=== PATIENT | male | born 1955 | race Caucasian/White ===

== ENCOUNTER 2021-07-01 19:18 | Inpatient (IN) ==
--- NOTE | 2021-07-01 19:34 | Emergency Department Note ---
History of Present Illness General Chief Complaint: Chest Pain Time Seen by Provider: 07/01/21 19:24 History of Present Illness Provider Complaint: chest pain Onset (ago): hour(s) 7 Duration: now resolved Onset: during exertion Pain Location: substernal Current Pain Intensity: 0 Quality: + aching, + heaviness and + dull Relieved By: + nitroglycerin and + rest Exacerbated By: + exertion Context: no recent illness, no recent surgery, no recent immobilization, no recent travel, no trauma/injury, no new medications or no history of DVT/PE Associated symptoms: + dyspnea; no nausea, no vomiting, no diaphoresis, no syncope, no palpitations, no fever, no cough or no leg swelling Treatments prior to arrival: aspirin and nitroglycerin Home Medications Medication Instructions Recorded Confirmed Type acetaminophen 500 mg tablet 1,000 mg PO BID PRN 04/30/19 07/01/21 History (Tylenol Extra Strength) Allergies Allergy/AdvReac Type Severity Reaction Status Date / Time No Known Allergies Allergy Unknown Verified 07/01/21 22:26 Past Med/Surg History Medical History No pertinent past medical history Surgical History Hx of tonsillectomy Social History Smoking Status: Never smoker Preferred Language: Armenian Feels Safe at Home: Yes Review of Systems A total of 10 systems reviewed and were otherwise negative Physical Exam Vital Signs Vital Signs - 24 hr 07/01/21 19:27 07/01/21 20:08 07/01/21 21:07 Temperature 37.2 C 36.7 C Temperature Source Oral Oral Pulse Rate 90 Pulse Rate [Apical] 70 Pulse Rhythm [Apical] Regular Pulse Strength [Apical] Normal Respiratory Rate 22 16 Respiratory Effort / Characteristics Non-Labored Spontaneous Respiratory Depth Normal Respiratory Pattern Regular Blood Pressure 144/95 H Blood Pressure [Left Arm] 115/79 Blood Pressure Mean 111 Blood Pressure Mean [Left Arm] 91 Blood Pressure Position Sitting Blood Pressure Position [Left Arm] Lying Pulse Oximetry 88 L 96 Oxygen Delivery Method Nasal Cannula Nasal Cannula Nasal Cannula Oxygen Flow Rate 0 3 4 Sepsis Recent Fever Within 48 Hours No Sepsis New/Unexplained Change in Mental Status No Sepsis Action Taken by Nursing No Action Required Oxygen Flow Rate - Titration 3 Pulse Oximetry Post Tiitration 96 Physical Exam GENERAL: He is oriented to person, place, and time. He appears well-developed and well-nourished. He does not appear distressed. HENT: Exam performed. - Head: Normocephalic and atraumatic. - Right Ear: External ear normal. No mastoid tenderness. - Left Ear: External ear normal. No mastoid tenderness. - Mouth/Throat: The oropharynx is clear and moist. No trismus in the jaw. No dental abscesses or uvula swelling. No oropharyngeal exudate or tonsillar abscesses. EYES: Conjunctivae and EOM are normal. Pupils are equal, round, and reactive to light. Right eye exhibits no discharge. Left eye exhibits no discharge. No scleral icterus. NECK: Normal range of motion. Neck supple. No JVD present. No spinous process tenderness present. No carotid bruit present. No rigidity. No tracheal deviation and normal range of motion present. No Brudzinski's sign and no Kernig's sign noted. CV: Normal rate, regular rhythm, normal heart sounds and intact distal pulses. Palpable radial pulses bue. PULM/CHEST: Diminished right-sided breath sounds. Rales at the bases bilaterally. - Chest Wall: He exhibits no tenderness. No crepitus. ABD: The abdomen is soft. Bowel sounds are normal. He has no distension. No mass is present. There is no tenderness. There is no rebound, no guarding, no Gastelum's sign and no tenderness at McBurney's point. Rovsig negative. MUSC/SKEL: Normal range of motion. There is no tenderness or deformity. 1+ pitting edema of the bilateral lower extremities. LYMPH: No cervical adenopathy. NEURO: He is alert and oriented to person, place, and time. He has normal strength. No cranial nerve deficit or sensory deficit. Coordination and gait normal. GCS eye subscore is 4. GCS verbal subscore is 5. GCS motor subscore is 6. Cerebellar tests wnl. SKIN: Skin is warm and dry. He is not diaphoretic. PSYCH: He has a normal mood and affect. Behavior is normal. Judgment and thought content normal. Procedures Chest Tube Chest Tube 1: Chest Tube Location: right and mid axillary line Size of Tube (cm): 28 Chest Tube Prep: Yes betadine prep and sterile drapes applied Local Anesthetic: lidocaine 1% and with epi Amount of anesthesia used (mL): 10 Incision Made With: #10 blade Post Procedure: sutured to skin and sterile dressing applied Tube Drainage: none Post Procedure CXR?: Yes Patient Tolerated Procedure: Yes Complications: other Progress: Difficult chest tube placement due to patient's habitus. First chest tube was placed and the patient tolerated the procedure well. On the postprocedure x-ray the chest tube did appear to be kinked. The chest tube was removed and it did show a kink. A second chest tube attempt was conducted through the same incision and this unfortunately did not enter the thoracic cavity. Multiple attempts were made at repositioning this but were unable to get into the thoracic cavity. The chest tube was removed. A third chest tube was attempt was made through the initial incision and a large gush of air came out and there is good condensation in the chest tube. On postprocedure x-ray after the third chest tube attempt it showed that the lung was reexpanded. Patient tolerated the procedure well. Course Course 1923: The patient was evaluated in room C11. A complete history and physical exam was performed Cardiac monitoring: An order was placed for continuous cardiac monitoring. The monitor shows a rate of 90 with sinus rhythm Patient was found to be satting 88% on room air. Patient does not usually wear oxygen. Patient was placed on 2 L nasal cannula which improved his oxygen saturation. Patient states he had Covid last year and is not vaccinated and does not want to be vaccinated. 0: X-ray tech called me to bedside. Chest x-ray showed large right-sided pneumothorax. No evidence of tension clinically as patient has no JVD, no hypotension, and trachea is midline. 2129: Signs stable. Chest tube was placed. Difficult chest tube placement, see procedure note. Patient did tolerate the procedure well. Vital signs are stable. Discussed with Dr. Camacho on-call pulmonology who agrees to be on consult and agrees with patient to be admitted to the hospitalist service. [facility] hospitalist will be paged. Administered Medications Discontinued Medications Fentanyl Citrate (Fentanyl Citrate 100 Mcg/2 Ml Vial) Confirm Administered Dose 100 mcg .ROUTE .[employer] ONE Stop: 07/01/21 20:18 Last Admin: 07/01/21 20:22 Dose: 100 mcg Documented by: [id number] Fentanyl Citrate (Fentanyl Citrate 100 Mcg/2 Ml Vial) Confirm Administered Dose 100 mcg .ROUTE .[employer] ONE Stop: 07/01/21 20:47 Last Admin: 07/01/21 20:47 Dose: 100 mcg Documented by: [id number] Lidocaine/Epinephrine (Lidocaine 1%/Epinephrine 1:100,000 50 Ml Vial) Confirm Administered Dose 50 ml .ROUTE .[employer] ONE Stop: 07/01/21 20:08 Last Admin: 07/01/21 20:18 Dose: 50 ml Documented by: [id number] Lorazepam (Lorazepam 2 Mg/1 Ml Vial) Confirm Administered Dose 2 mg .ROUTE .[employer] ONE Stop: 07/01/21 20:19 Last Admin: 07/01/21 20:23 Dose: 1 mg Documented by: [id number] Ondansetron HCl (Ondansetron Inj 2 Mg/Ml 2 Ml Vial) Confirm Administered Dose 4 mg .ROUTE .[employer] ONE Stop: 07/01/21 20:19 Last Admin: 07/01/21 20:22 Dose: 4 mg Documented by: [id number] Medical Decision Making Laboratory Data Result diagrams: 07/01/21 19:36 07/01/21 19:36 Labs: Lab Results 07/01/21 07/01/21 07/01/21 Range/Units 19:36 19:36 19:36 WBC 11.69 H (4.8-10.8) K/uL RBC 5.17 (4.7-6.1) M/uL Hgb 15.4 (14.0-18.0) g/dL Hct 45.7 (42-52) % MCV 88.4 (80-100) fL MCH 29.8 (25-34) pg MCHC 33.7 (32-36) g/dL RDW Std Deviation 44.2 (36.4-46.3) fL RDW Coeff of Lupe 13.6 (11.5-14.5) % Plt Count 244 (130-400) K/uL MPV 10.9 H (7.4-10.4) fL Immature Gran % (Auto) 0.3 % Neut % (Auto) 83.1 % Lymph % (Auto) 9.5 % [place]oto % (Auto) 6.6 % Eos % (Auto) 0.3 % Baso % (Auto) 0.2 % Neut # (Auto) 9.73 H (1.4-6.5) K/uL Lymph # (Auto) 1.11 L (1.2-3.4) K/uL [place] # (Auto) 0.77 H (0.11-0.59) K/uL Eos # (Auto) 0.03 (0-0.5) K/uL Baso # (Auto) 0.02 (0-0.2) K/uL Immature Gran # (Auto) 0.03 H (0.00-0.02) K/uL PT 10.6 (9.0-12.0) Seconds INR 1.0 (0.9-1.1) APTT 26.3 (21.0-31.0) Seconds PTT Ratio 1.0 Sodium (136-145) mmol/L Potassium (3.5-5.1) mmol/L Chloride (98-107) mmol/L Carbon Dioxide (21-32) mmol/L Anion Gap (3-11) BUN (6-23) mg/dl Creatinine (0.6-1.4) mg/dl Est Cr Clr Drug Dosing ml/min Est GFR ( Amer) ml/min Est GFR (Non-Af Amer) ml/min BUN/Creatinine Ratio (10-20) Glucose (70-99(Fasting)) mg/dl Calcium (8.5-10.1) mg/dl Troponin I (0-0.04) ng/ml B-Natriuretic Peptide (0-100) pg/ml Lipase (11-82) U/L SARS-CoV-2, RNA, NAAT (NEGATIVE) 07/01/21 07/01/21 07/01/21 Range/Units 19:36 20:00 20:19 WBC (4.8-10.8) K/uL RBC (4.7-6.1) M/uL Hgb (14.0-18.0) g/dL Hct (42-52) % MCV (80-100) fL MCH (25-34) pg MCHC (32-36) g/dL RDW Std Deviation (36.4-46.3) fL RDW Coeff of Lupe (11.5-14.5) % Plt Count (130-400) K/uL MPV (7.4-10.4) fL Immature Gran % (Auto) % Neut % (Auto) % Lymph % (Auto) % Desoto % (Auto) % Eos % (Auto) % Baso % (Auto) % Neut # (Auto) (1.4-6.5) K/uL Lymph # (Auto) (1.2-3.4) K/uL Desoto # (Auto) (0.11-0.59) K/uL Eos # (Auto) (0-0.5) K/uL Baso # (Auto) (0-0.2) K/uL Immature Gran # (Auto) (0.00-0.02) K/uL PT (9.0-12.0) Seconds INR (0.9-1.1) APTT (21.0-31.0) Seconds PTT Ratio Sodium 138 (136-145) mmol/L Potassium 3.6 (3.5-5.1) mmol/L Chloride 104 (98-107) mmol/L Carbon Dioxide 24 (21-32) mmol/L Anion Gap 10 (3-11) BUN 13 (6-23) mg/dl Creatinine 0.65 (0.6-1.4) mg/dl Est Cr Clr Drug Dosing 170.4 ml/min Est GFR ( Amer) 117.5 ml/min Est GFR (Non-Af Amer) 101.4 ml/min BUN/Creatinine Ratio 20.0 (10-20) Glucose 132 H (70-99(Fasting)) mg/dl Calcium 9.1 (8.5-10.1) mg/dl Troponin I 0.04 (0-0.04) ng/ml B-Natriuretic Peptide 88 (0-100) pg/ml Lipase 12 (11-82) U/L SARS-CoV-2, RNA, NAAT NEGATIVE (NEGATIVE) Imaging Data Chest x-ray: Radiologist's impression: Chest X-Ray 07/01/21 19:30 XR chest 1V portable HISTORY: Right-sided Chest Pain COMPARISON: None. FINDINGS: Large right pneumothorax with near-complete collapse of the right lung. There is mild left mediastinal shift and widening of the right intercostal spaces. This is concerning for a tension pneumothorax. Interstitial thickening at the left lung is likely due to vascular crowding. The heart is normal in size. No pleural effusions. IMPRESSION: Large right pneumothorax, possibly representing a tension pneumothorax. This was discussed with Dr. Cardozo at 8:00 PM on 07/01/2021 ACT 112: Negative or not required by law. Electronically signed by: Omar Kapadia M.D. 07/01/2021 8:02 PM Chest X-Ray 07/01/21 20:58 XR chest 1V portable HISTORY: Right pneumothorax. Evaluate chest tube placement. CHEST TUBE ORDER PUT IN PER DR CARDOZO STERILE COMPARISON: Chest 07/01/2021. FINDINGS: Multiple images of the chest were obtained. On the first 6 images the chest tube is not within the pleural cavity. The final image demonstrates the chest tube located within the right lung base. The final image demonstrates reexpansion of the right lung with a small pneumothorax remaining. Linear densities within the right lung likely represent subsegmental atelectasis. The mediastinal shift has resolved. The heart is normal in size. Right paramediastinal density is noted. There is right chest wall subcutaneous em physema. IMPRESSION: 1. Multiple attempts at a right-sided chest tube placement with the final image demonstrating the chest tube located at the right lung base and reexpansion of the large right pneumothorax. 2. Small right pneumothorax persists. Mediastinal shift has resolved. 3. Right paramediastinal density is nonspecific and could represent atelectasis. Continued follow-up recommended to ensure resolution of this finding. ACT 112: Negative or not required by law. Electronically signed by: Omar Kapadia M.D. 07/01/2021 9:15 PM ECG Data Indication: chest pain Rate (beats per minute): 92 Rhythm: normal sinus Findings: no ST depression, no ST elevation or no prolonged QT MDM Narrative 1923: The patient was evaluated in room C11. A complete history and physical exam was performed Cardiac monitoring: An order was placed for continuous cardiac monitoring. The monitor shows a rate of 90 with sinus rhythm Patient was found to be satting 88% on room air. Patient does not usually wear oxygen. Patient was placed on 2 L nasal cannula which improved his oxygen saturation. Patient states he had Covid last year and is not vaccinated and does not want to be vaccinated. 1939: X-ray tech called me to bedside. Chest x-ray showed large right-sided pneumothorax. No evidence of tension clinically as patient has no JVD, no hypotension, and trachea is midline. 2130: Signs stable. Chest tube was placed. Difficult chest tube placement, see procedure note. Patient did tolerate the procedure well. Vital signs are stable. Discussed with Dr. Camacho on-call pulmonology who agrees to be on consult and agrees with patient to be admitted to the hospitalist service. [facility] hospitalist will be paged. Impression & Plan Pneumothorax Discharge Plan Visit Data Chief Complaint: Chest Pain ED Provider: Heriberto Cardozo Discharge Problem: Pneumothorax Patient Disposition: Admitted As Inpatient Forms Stand Alone Forms: [facility] Prescriptions Prescriptions: No Action acetaminophen [Tylenol Extra Strength] 500 mg Tablet 1,000 mg PO BID PRN (Reason: Pain) RF: 0 Referrals Referrals: PCP,NO [Primary Care Provider] - Discharge Problem: Pneumothorax Qualifiers: Pneumothorax type: spontaneous, primary Qualified Code(s): J93.11 - Primary spontaneous pneumothorax
[2021-07-01 19:47] LABS: Basophils # (auto) 0.02 K/uL (0-0.2); Basophils % (auto) 0.2 %; Eosinophils # (auto) 0.03 K/uL (0-0.5); Eosinophils % (auto) 0.3 %; Hematocrit (blood only) 45.7 % (42-52); Hemoglobin 15.4 g/dL (14.0-18.0); Immature Granulocytes # (auto) 0.03 K/uL (0.00-0.02); Immature Granulocytes % (auto) 0.3 %; Lymphocytes # (auto) 1.11 K/uL (1.2-3.4); Lymphocytes % (auto) 9.5 %; Mean Corpuscular Hemoglobin 29.8 pg (25-34); Mean Corpuscular Hgb Conc 33.7 g/dL (32-36); Mean Corpuscular Volume 88.4 fL (80-100); Mean Platelet Volume 10.9 fL (7.4-10.4); Monocytes # (auto) 0.77 K/uL (0.11-0.59); Monocytes % (auto) 6.6 %; Neutrophils # (auto) 9.73 K/uL (1.4-6.5); Neutrophils % (auto) 83.1 %; Platelet Count 244 K/uL (130-400); RDW Coefficient of Variation 13.6 % (11.5-14.5); RDW Standard Deviation 44.2 fL (36.4-46.3); Red Blood Count 5.17 M/uL (4.7-6.1); White Blood Count 11.69 K/uL (4.8-10.8)
--- NOTE | 2021-07-01 20:04 | XRay Report ---
XR chest 1V portable HISTORY: Right-sided Chest Pain COMPARISON: None. FINDINGS: Large right pneumothorax with near-complete collapse of the right lung. There is mild left mediastinal shift and widening of the right intercostal spaces. This is concerning for a tension pneu mothorax. Interstitial thickening at the left lung is likely due to vascular crowding. The heart is n ormal in size. No pleural effusions. IMPRESSION: Large right pneumothorax, possibly representing a tension pneumothorax. This was discussed with Dr. Kisha zhu at 8:00 PM on 07/01/2021 ACT 112: Negative or not required by law. Electronically signed by: Omar Kapadia M.D. 07/01/2021 8:02 PM
[2021-07-01] MEDS ORDERED: LIDOCAINE 1%/EPINEPHRINE 1:100,000 50 ML VIAL ONE (20:07)
[2021-07-01 20:10] LABS: Troponin I 0.04 ng/ml (0-0.04)
[2021-07-01 20:15] LABS: Partial Thromboplastin Time 26.3 Seconds (21.0-31.0); Prothrombin Time 10.6 Seconds (9.0-12.0)
[2021-07-01 20:17] LABS: Calcium 9.1 mg/dl (8.5-10.1); Creatinine Clr Calc Pharmacy 170.4 ml/min; Est GFR (African American) 117.5 ml/min; Est GFR (Non-African American) 101.4 ml/min; Potassium 3.6 mmol/L (3.5-5.1)
[2021-07-01] MEDS ORDERED: fentaNYL citrate 100 MCG/2 ML VIAL ONE ×2 (20:17→20:46)
[2021-07-01] MEDS ORDERED: LORazepam 2 MG/1 ML VIAL ONE (20:18)
[2021-07-01] MEDS ORDERED: ONDANSETRON INJ 2 MG/ML 2 ML VIAL ONE (20:18)
--- NOTE | 2021-07-01 21:18 | XRay Report ---
XR chest 1V portable HISTORY: Right pneumothorax. Evaluate chest tube placement. CHEST TUBE ORDER PUT IN PER DR JULIANE CALZADA COMPARISON: Chest 07/01/2021. FINDINGS: Multiple images of the chest were obtained. On the first 6 images the chest tube is not wit hin the pleural cavity. The final image demonstrates the chest tube located within the right lung bas e. The final image demonstrates reexpansion of the right lung with a small pneumothorax remaining. Li near densities within the right lung likely represent subsegmental atelectasis. The mediastinal shift has resolved. The heart is normal in size. Right paramediastinal density is noted. There is right ch est wall subcutaneous emphysema. IMPRESSION: 1. Multiple attempts at a right-sided chest tube placement with the final image demonstrating the zaheer st tube located at the right lung base and reexpansion of the large right pneumothorax. 2. Small right pneumothorax persists. Mediastinal shift has resolved. 3. Right paramediastinal density is nonspecific and could represent atelectasis. Continued follow-up recommended to ensure resolution of this finding. ACT 112: Negative or not required by law. Electronically signed by: Omar Kapadia M.D. 07/01/2021 9:15 PM
--- NOTE | 2021-07-01 22:47 | History & Physical Report ---
Date of Service July 01, 2021 Assessment & Plan (1) Pneumothorax: Plan: Tony Munguia is a 66-year-old male with PMH of tobacco use for many years (stopped in 1997) who presented today for chest pain since earlier today. Pneumothorax Status post chest tube placement in the ED As needed pain management with Tylenol and IV morphine Patient likely has some underlying lung pathology with long history of tobacco use, could consider PFTs in the future Pulmonology consult in a.m. DVT prophylaxis: SCDs, hold chemoprophylaxis Dispo: Telemetry Diet: Heart healthy, NSS @ 80cc/h CODE STATUS: Full History of Present Illness Primary Care Provider: NO PCP Tony Munguia is a 66-year-old male with PMH of tobacco use for many years (stopped in 1997) who presented today for chest pain since earlier today. He initially felt the pain when he was raking leaves in his yard around noon and noticed shortness of breath. At this point, he stopped raking, went inside his home, and symptoms improved. Later on in the afternoon he reattempted to rake outside and shortness of breath recurred. At this point he developed chest pain that radiated towards his right arm. Pain level was about 6 out of 10, described as pressure. EMS was called and arrived to find patient with ongoing symptoms. He was given a dose of nitroglycerin on route to the emergency department, with some improvement in pain levels. Upon arrival to ED, patient was found to be hypoxic and had chest x-ray performed, which showed a large right pneumothorax, possibly representing a tension pneumothorax. At this point, ED provider proceeded with chest tube placement, which proved to be difficult due to patient habitus. On the third attempt, chest tube was successfully placed follow-up x-ray showed lung reexpansion. At the time of my evaluation, patient was laying in bed and was reasonably comfortable.Still had very mild dyspnea sensation, but was saturating well on nasal cannula 2 L. Pain was controlled at that time. Denying f/c, n/v, CP, abd pain, weakness, numbness, HOLLAND, dizziness. Allergies Allergy/AdvReac Type Severity Reaction Status Date / Time No Known Allergies Allergy Unknown Verified 07/01/21 22:26 Home Medications Medication Instructions Recorded Confirmed Type acetaminophen 500 mg tablet 1,000 mg PO BID PRN 04/30/19 07/01/21 History (Tylenol Extra Strength) Past Med/Surg History Medical History (Updated 07/02/21 @ 09:55 by Nilay Jack PA-C) History of tobacco abuse Morbid obesity with BMI of 45.0-49.9, adult No pertinent past medical history Pneumothorax Nontraumatic Surgical History Hx of tonsillectomy Social History Smoking Status: Never smoker Hx Alcohol Use: No Hx Substance Use: No Preferred Language: Stateless Communication Ability: Effective Critical Care Registered Nurse Required: No Beliefs That Will Affect Care: None Current Living Situation: Alone Other Information That Helps Us Care for You: No Feels Safe at Home: Yes Safety Concerns: Feels Safe At This Time Assistive Devices: Oxygen - Continuous Review of Systems Review of Systems: All systems reviewed & are unremarkable except as noted in HPI & below Physical Exam Physical Exam: GENERAL: A&Ox3. NAD. Obese. HEENT: PERRL, EOMI. Moist mucous membranes. NECK: No JVD. No lymphadenopathy. CHEST/LUNGS: Diminished lung sounds on right side. No crackles, wheezes, rales, rhonchi. Chest tube in place on right side. HEART: RRR. No m/g/r. No carotid bruits. ABDOMEN: NT/ND, soft. BS+ x4 EXTREMITIES: No cyanosis, no clubbing, no edema SKIN: Warm and dry. No rashes or lesions. PSYCHIATRIC: Euthymic affect, no SI, no pressured speech, no hallucinations NEUROLOGIC: No FND. CN II-XII grossly intact. Results & Data Results & Data ([facility]) Vital Signs (Past 12 Hours) Vital Signs Temp Pulse Pulse Resp BP BP Pulse Ox 07/01/21 21:07 36.7 C 70 16 115/79 96 07/01/21 19:27 37.2 C 90 22 144/95 H 88 L Supervising Physician Co-Signing Physician Notes Attending addendum: I have physically seen this patient, have supervised the medical residents activities, and agree with the H&P unless as otherwise noted. Assessment and Plan: Right pneumothorax- Status post chest tube placement in the ED Pain management with with IV Tylenol and IV morphine as noted Consult pulmonology Tobacco abuse disorder Cessation counseling Remaining orders and notations as noted Resident Activity Tracking Resident Involvement: Resident Care Provided Care Provided: Adult Hospital Medicine (1) Pneumothorax Pneumothorax type: spontaneous, primary Qualified Code(s): J93.11 - Primary spontaneous pneumothorax
[2021-07-02] MEDS ORDERED: ALUMINUM/MAGNESIUM SUSP 30 ML UDC PO PRN (00:07)
[2021-07-02] MEDS ORDERED: ACETAMINOPHEN 500 MG TAB PO PRN ×2 (00:07→01:23)
[2021-07-02] MEDS ORDERED: POLYETHYLENE (MIRALAX) 17 GM PACK PO PRN (00:07)
[2021-07-02] MEDS ORDERED: ONDANSETRON INJ 2 MG/ML 2 ML VIAL IV PRN (00:07)
[2021-07-02] MEDS ORDERED: MAGNESIUM HYDROXIDE SUSP 30 ML UDC PO PRN (00:07)
[2021-07-02] MEDS: SODIUM CHLORIDE 0.9% 1000ML 1,000 ML IV SCH ×3 (00:18→23:42)
[2021-07-02] MEDS ORDERED: MoRPHine SULFATE 4 MG/ML 1 ML CARP\\VIAL IV PRN (00:27)
[2021-07-02] MEDS ORDERED: MoRPHine SULFATE 2 MG/ML CARP ONE (00:37)
[2021-07-02] MEDS: MoRPHine SULFATE 2 MG/ML CARP IV PRN ×2 (03:44→05:05)
[2021-07-02 08:07] LABS: Chol HDL Ratio 3.9 (0-5)
--- NOTE | 2021-07-02 08:22 | Hospitalist Progress Note ---
Date of Service July 02, 2021 Assessment & Plan (1) Pneumothorax: Plan: Tony Munguia is a 66-year-old male with PMH of tobacco use (stopped in 1997) who presented today for chest pain and found to have a right pneumothorax. Had chest tube placed and is improving. Pneumothorax; spontaneous; improving - Chest tube placed right side - CXR 316 AM, pneumothorax improving - As needed pain management with Tylenol and IV morphine Patient likely has some underlying lung pathology with history of tobacco use (30 pack year), could consider PFTs in the future Pulmonology consult recs appreciated: - CXR this AM - Air leak appeared to resolved, switched to water seal (mimics normal physiology) and repeat CXR in 4 hours (~2PM) - If pneumothorax resolved then, possible chest tube removal Chronic Disease Management Likely a spontaneous PTX due to some underlying COPD although hasn't seen doctor/received diagnosis - Would benefit from visiting outpatient physician-- consider use of PFTs for lung pathology and further work-up of past "shortness of breath" episodes DVT prophylaxis: SCDs, hold chemoprophylaxis Dispo: Telemetry Diet: Heart healthy, NSS @ 80cc/h CODE STATUS: Full Admission and Anticipated Discharge Date Admission Date: July 01, 2021 Supervising Physician Co-Signing Physician Notes I personally examined the patient and verified all tillman points of history and exam, discussed case, and agree with decision making with A Coni MS4 feeling reasonably OK now - hard to relate pain control mostly because he's remembering how much it hurt to get chest tube in and worried about what pain might come later - but seems like right now pain is reasonably well controlled (nursing then enters and notes pain is far better than it was before) vitals noted nad heent nc at mmm breathing unlabored no accessory muscles chest tube R lung CXRs noted spontaneous pneumothorax - doing better now. continue chest tube, oxygen support. appreciate pulmonary input. ?ruptured bleb vs other. anticipate further eval - likley as outpt in near future otherwise as above Subjective Tony is a 65M with history of tobacco use who was admitted for a pneumothorax on 07/01. He called EMS after he had progressively worsening shortness of breath starting on 07/01 noon. While in the ED, he received a chest tube (took 3 attempts) and has improved. This morning, Tony is feeling like his breathing has improved. Endorses significant pain at the chest tube sight No shortness of breath. No chest pain. No pain with breathing. Prior to yesterday, Tony had no symptoms. He was able to do his work without any difficulty. He has never had a pneumothorax in the past. Tony cannot recall any trauma/injury to the chest wall. He does have a smoking history (30 pack year; quit in 1997). He lives alone but has two daughters who live in the area. His home has stairs which he can usually use without any difficulty. 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 Tony does not usually see a doctor but did endorse a past medical history of recurrent hernias/hydrocele. His brother recently of cancer ("lump on hip") and his mother of cancer (Tony unsure what type but thinks gynecological). Review of Systems Review of Systems: per subjective Physical Exam Physical Exam: General: A&Ox3, NAD, sitting comfortably at edge of bed. Pulm: Dimished lung sounds on right side. No crackes/wheezes/rales/rhonchi. Chest tube in place on right chest wall. Heart: RRR. no murmurs/rubs/gallops. Extremities: No cyanosis, no clubbing, no edema Skin: Warm, dry Results & Data Results & Data ([facility]) Vital Signs (Past 12 Hours) Vital Signs Temp Pulse Pulse Resp BP BP BP 07/02/21 07:07 36.7 C 75 17 137/89 07/02/21 03:46 37 C 77 22 146/86 H 07/02/21 00:07 76 07/01/21 23:31 37.0 C 76 20 139/97 07/01/21 23:25 77 17 136/106 H 07/01/21 21:07 36.7 C 70 16 115/79 Pulse Ox 07/02/21 07:07 97 07/02/21 03:46 97 07/02/21 00:07 07/01/21 23:31 96 07/01/21 23:25 96 07/01/21 21:07 96 (1) Pneumothorax Pneumothorax type: spontaneous, primary Qualified Code(s): J93.11 - Primary spontaneous pneumothorax
--- NOTE | 2021-07-02 10:00 | Pulmonary Consultation ---
Date of Consultation July 02, 2021 Assessment & Plan (1) Pneumothorax: Pneumothorax type: spontaneous, primary Qualified Code(s): J93.11 - Primary spontaneous pneumothorax (2) Morbid obesity with BMI of 45.0-49.9, adult: (3) History of tobacco abuse: Attending: Dr. Camacho Impression: This is a 66-year-old male with spontaneous pneumothorax which developed while he was raking leaves yesterday. Remote history of tobacco abuse. Quit smoking in 1997. No other use of nicotine products, vaping, illicit drugs. No recent trauma, surgery, hospitalizations, illness to explain pneumothorax. Surgical chest tube placed with good reexpansion on follow-up chest x-ray last evening. Chest x-ray requested this morning and still pending. No air leak with chest tube to Pleur-evac. Taken off suction and placed on waterseal at 09:00 this morning. No fever, chills, sweats, rigors. No other acute complaints. Some anxiety over how this occurred and whether it will return and if he will get better. Recommendations: 1. Spontaneous pneumothorax: * No trauma, surgery, illness recently * No tobacco use since 1997 * Patient does admit to some periodic marijuana use. Last use was 2 days ago * Surgical chest tube placed yesterday with good reexpansion of lung with follow-up chest x-ray * Placed to waterseal this morning. Repeat chest x-ray is pending * Repeat chest x-ray this morning shows large right-sided pneumothorax with poor placement of tube. It appears that the chest tube has migrated and the tip of the tube is now against the chest wall. It may even be in the subcutaneous ti ssue at the incisional site. * Chest tube will be removed and an emergent midclavicular chest tube will be placed with plan for chest x-ray after that tube placement. * Patient does have desaturation to about 84% on room air. Supplemental oxygen increased to maintain SaO2 greater than 90% 2. Morbid obesity: * Briefly discussed. Will focus on weight loss strategy with primary team 3. Tobacco abuse: * Heavy smoker until 1997. He quit at that time. Occasional marijuana use at this time. * Counseled patient on complete abstention of any inhaled products including tobacco, marijuana, chemicals, vaping. Thank you for including us in the care of this patient. We will continue to follow the patient. 60 minutes of critical care time was spent as patient had developed a pneumothorax and concern for developing tension pneumothorax due to desaturation of SaO2 while on oxygen. Supervising Physician Co-Signing Physician Notes Patient seen with PA. Primary spontaneous ptx. Pigtail placed at bedside as surgical tube was malpositioned. Ptx decreased in size. History of Present Illness Reason for Consultation: Acute nontraumatic pneumothorax Attending Physician: Bola Butler DO History of Present Illness Attending: Dr. Camacho This is a 66-year-old male with morbid obesity with BMI of 48.1 kg/m. Otherwise he has no past medical history. He is on no home medications. He denies any heart disease including hypertension or CHF. Patient has no pulmonary history. The patient is a former tobacco user but stopped smoking in 1997. He does not consume alcohol. He does not follow with a family doctor primary care provider. Patient reports that he was outside raking leaves a few days ago with no problem. Yesterday he began having some chest pain and went inside to rest. The pain abated. He then attempted to rake leaves again and the chest pain returned and patient had some shortness of breath associated with it. EMS was called and patient was transported to the emergency department. In transit he received nitroglycerin which provided minimal relief to his chest pain. In the emergency department he was found to have an SaO2 of 88% on room air and placed on supplemental oxygen. A chest x-ray was obtained and patient was found to have a large pneumothorax. He has no recent surgery, trauma, accidents. There is no evidence of contusion or other injury to the chest wall. Chest x-ray did not reveal any rib fractures. There did appear to be some mild left mediastinal shift and widening of the right intercostal spaces. A surgical chest tube was placed and patient has been on suction at -20 mmHg. Repeat chest x-ray last evening revealed persistent pneumothorax. There is no fluid accumulation in the Pleur-evac this morning on continuous suction at 20 cm of water. There is no evidence of air leak. Patient was placed to waterseal at 09:00 this morning. Repeat chest x-ray showed large right-sided pneumothorax with the tip of the tube extending into the chest wall. Patient reported some discomfort but no acute distress. Patient does have some mild pain at the insertion site of the chest tube. Otherwise, he has no acute complaints. Allergies Allergy/AdvReac Type Severity Reaction Status Date / Time No Known Allergies Allergy Unknown Verified 07/01/21 22:26 Home Medications Medication Instructions Recorded Confirmed Type acetaminophen 500 mg tablet 1,000 mg PO BID PRN 04/30/19 07/01/21 History (Tylenol Extra Strength) Patient History Medical History (Updated 07/02/21 @ 09:55 by Nilay Jack PA-C) History of tobacco abuse Morbid obesity with BMI of 45.0-49.9, adult No pertinent past medical history Pneumothorax Nontraumatic Surgical History Hx of tonsillectomy Social History Smoking Status: Never smoker Hx Alcohol Use: No Hx Substance Use: No Preferred Language: Belarusian Communication Ability: Effective Mine Superintendent Required: No Beliefs That Will Affect Care: None marital status: Current Living Situation: Alone Other Information That Helps Us Care for You: No Feels Safe at Home: Yes Safety Concerns: Feels Safe At This Time Assistive Devices: Oxygen - Continuous Review of Systems Review of Systems: All systems reviewed & are unremarkable except as noted in Subjective Physical Exam Physical Exam: GENERAL : No acute distress EYES: No icterus, gaze conjugate NOSE: No evidence of epistaxis. Nasal cannula removed. SaO2 94% on room air MOUTH: No lesions or candidiasis NECK: Supple LUNGS: CTA B/L, no wheezes, rales or rhonchi. Breath sounds somewhat diminished right greater than left. Crepitus noted around the current chest tube site. HEART: Regular, rate controlled. Heart rate 75 bpm ABDOMEN: Soft, NT, ND, BS Present EXTREMITIES: No LE edema, pedal pulses intact NEURO: A&OX3 Results & Data Results & Data ([facility]) Vital Signs (Past 12 Hours) Vital Signs Temp Pulse Pulse Resp BP BP BP 07/02/21 07:07 36.7 C 75 17 137/89 07/02/21 03:46 37 C 77 22 146/86 H 07/02/21 00:07 76 07/01/21 23:31 37.0 C 76 20 139/97 07/01/21 23:25 77 17 136/106 H Pulse Ox 07/02/21 07:07 97 07/02/21 03:46 97 07/02/21 00:07 07/01/21 23:31 96 07/01/21 23:25 96 Critical Care Results & Data Vital Signs (Past 12 Hours) Vital Signs Temp Pulse Pulse Resp BP BP BP 07/02/21 07:07 36.7 C 75 17 137/89 07/02/21 03:46 37 C 77 22 146/86 H 07/02/21 00:07 76 07/01/21 23:31 37.0 C 76 20 139/97 07/01/21 23:25 77 17 136/106 H Pulse Ox 07/02/21 07:07 97 07/02/21 03:46 97 07/02/21 00:07 07/01/21 23:31 96 07/01/21 23:25 96 Lab & Micro Results (Past 24 Hours) RBC 4.48 M/uL (4.7-6.1) L 07/04/21 WBC 9.61 K/uL (4.8-10.8) 07/04/21 Hgb 13.4 g/dL (14.0-18.0) L 07/04/21 Hct 40.2 % (42-52) L 07/04/21 MCV 89.7 fL (80-100) 07/04/21 MCH 29.9 pg (25-34) 07/04/21 MCHC 33.3 g/dL (32-36) 07/04/21 RDW Standard Deviation 45.7 fL (36.4-46.3) 07/04/21 RDW Coefficient of Variation 13.9 % (11.5-14.5) 07/04/21 Plt Count 199 K/uL (130-400) 07/04/21 MPV 11.3 fL (7.4-10.4) H 07/04/21 Neutrophils (%) (Auto) 65.0 % 07/04/21 Lymphocytes (%) (Auto) 19.4 % 07/04/21 Monocytes # (Auto) 1.25 K/uL (0.11-0.59) H 07/04/21 Eosinophils # (Auto) 0.20 K/uL (0-0.5) 07/04/21 Immature Granulocyte % (Auto) 0.3 % 07/04/21 Neutrophils # (Auto) 6.25 K/uL (1.4-6.5) 07/04/21 Lymphocytes # (Auto) 1.86 K/uL (1.2-3.4) 07/04/21 Monocytes # (Auto) 1.25 K/uL (0.11-0.59) H 07/04/21 Eosinophils # (Auto) 0.20 K/uL (0-0.5) 07/04/21 Basophils # (Auto) 0.02 K/uL (0-0.2) 07/04/21 Immature Granulocyte # (Auto) 0.03 K/uL (0.00-0.02) H 07/04/21 Na 139 mmol/L (136-145) 07/04/21 K 3.5 mmol/L (3.5-5.1) 07/04/21 Cl 107 mmol/L (98-107) 07/04/21 CO2 27 mmol/L (21-32) 07/04/21 Anion Gap 5 (3-11) 07/04/21 BUN 11 mg/dl (6-23) 07/04/21 Creatinine 0.48 mg/dl (0.6-1.4) L 07/04/21 Estimated GFR ( Amer) 133.1 ml/min 07/04/21 Estimated GFR (Non-Af Amer) 114.8 ml/min 07/04/21 BUN/Creatinine Ratio 22.9 (10-20) H 07/04/21 Glu 99 mg/dl (70-99(Fasting)) 07/04/21 Ca 8.3 mg/dl (8.5-10.1) L 07/04/21 Calcium Level 8.3 mg/dl (8.5-10.1) L 07/04/21 05:26 07/04/21 Diagnostic Findings (Past 24 Hours) Chest X-Ray 07/01/21 19:30 XR chest 1V portable HISTORY: Right-sided Chest Pain COMPARISON: None. FINDINGS: Large right pneumothorax with near-complete collapse of the right lung. There is mild left mediastinal shift and widening of the right intercostal spaces. This is concerning for a tension pneumothorax. Interstitial thickening at the left lung is likely due to vascular crowding. The heart is normal in size. No pleural effusions. IMPRESSION: Large right pneumothorax, possibly representing a tension pneumothorax. This was discussed with Dr. Cardozo at 8:00 PM on 07/01/2021 ACT 112: Negative or not required by law. Electronically signed by: Omar Kapadia M.D. 07/01/2021 8:02 PM Chest X-Ray 07/01/21 20:58 XR chest 1V portable HISTORY: Right pneumothorax. Evaluate chest tube placement. CHEST TUBE ORDER PUT IN PER DR CARDOZO STERILE COMPARISON: Chest 07/01/2021. FINDINGS: Multiple images of the chest were obtained. On the first 6 images the chest tube is not within the pleural cavity. The final image demonstrates the chest tube located within the right lung base. The final image demonstrates reexpansion of the right lung with a small pneumothorax remaining. Linear densi ties within the right lung likely represent subsegmental atelectasis. The mediastinal shift has resolved. The heart is normal in size. Right paramediastinal density is noted. There is right chest wall subcutaneous emphysema. IMPRESSION: 1. Multiple attempts at a right-sided chest tube placement with the final image demonstrating the chest tube located at the right lung base and reexpansion of the large right pneumothorax. 2. Small right pneumothorax persists. Mediastinal shift has resolved. 3. Right paramediastinal density is nonspecific and could represent atelectasis. Continued follow-up recommended to ensure resolution of this finding. ACT 112: Negative or not required by law. Electronically signed by: Omar Kapadia M.D. 07/01/2021 9:15 PM I & O Totals 24 Hours 07/01/21 07/02/21 07/03/21 06:59 06:59 06:59 Intake Total 760 / 760 Output Total 200 / 200 Balance 560 / 560 Cumulative 07/01/21 19:07 thru 07/02/21 06:00 Intake Total 760 Output Total 200 Balance 560 RT Ventilator Mngmt (Last Documented) Ventilator Ordered Settings Respiratory Rate 17 07/02/21 07:07 Ventilator - PT Measurements Respiratory Rate 17 PG Care Time/CCT Total # of Minutes Spent Total Time Spent with Patient: Total time spent is greater than 50% in coordination of care (as documented) at patient's floor/unit and/or counseling patient: 60 minutes independent of any procedures. 35 minutes was spent [id number] with the patient for interview, patient history, physical examination. 60 minutes of critical care time was spent. This was a life or limb situation. Coding Level of Care Code Critical Care 1st 30-74 mins Diagnoses Pneumothorax J93.11 Pneumothorax type: spontaneous, primary Morbid obesity with BMI of 45.0-49.9, adult E66.01; Z68.42 History of tobacco abuse Z87.891 Time Spent (min) 60 Comment This was a life or limb event due to developing right pneumothorax
--- NOTE | 2021-07-02 10:04 | XRay Report ---
SINGLE VIEW CHEST CLINICAL HISTORY: Pneumothorax and chest tube. FINDINGS: An AP, portable, semierect chest radiograph is compared to study dated 07/01/2021. The exami nation is degraded by portable technique and apical lordotic positioning. The cardiomediastinal silho uette is unremarkable. A right-sided chest tube has been pulled back. This appears to be located in t he chest wall. There is a large right pneumothorax with significant atelectasis of the right lung. Th ere is no left-sided pneumothorax. The trachea is midline. The left lung appears clear noting basilar atelectasis. The bony thorax is grossly intact. There is increasing subcutaneous emphysema within th e right chest wall. IMPRESSION: 1. A right-sided chest tube has been pulled back and is likely located within the chest wall. 2. Moderate to large right pneumothorax with partial collapse of the right lung. 3. The trachea is midline. ACT 112: Negative or not required by law. Electronically signed by: Nilay Callahan M.D. 07/02/2021 10:03 AM
[2021-07-02] MEDS ORDERED: LIDOCAINE 1% LOCAL 20 ML VIAL ONE ×2 (10:11→17:32)
--- NOTE | 2021-07-02 11:33 | XRay Report ---
SINGLE VIEW CHEST CLINICAL HISTORY: Chest tube placement. FINDINGS: An AP, portable, upright chest radiograph is compared to study performed earlier the same d ay 07/02/2021. The examination is degraded by portable technique and apical lordotic positioning. The cardiomediastinal silhouette is unremarkable. A right-sided chest tube has been replaced. No residual right pneumothorax is identified. Atelectasis is noted at the right lung base. Question trace right pleural effusion. The left lung appears clear. No pneumothorax is seen. The bony thorax is grossly in tact. Subcutaneous emphysema is noted along the right chest wall. IMPRESSION: 1. A right-sided chest tube has been replaced. The right lung has reexpanded, with no residual pneumo thorax identified. 2. There is atelectasis at the right lung base. Suspect trace right pleural effusion. ACT 112: Negative or not required by law. Electronically signed by: Nilay Callahan M.D. 07/02/2021 11:32 AM
--- NOTE | 2021-07-02 11:49 | Procedure Note ---
Procedure Note Date of Service July 02, 2021 Note PIGTAIL CATHETER PLACEMENT NOTE: Procedure: Pigtail Catheter Chest Tube Placement Attending: Dr. Camacho APC: Nilay Jack PA-C Indication: Large right pneumothorax with desaturation on supplemental oxygen to 84% Anesthesia: 30 mL lidocaine 1% Verbal consent was obtained and on the chart. This was obtained by Nilay Jack PA-C as delegated by Dr. Camacho. Emergent chest tube placement was required for large right pneumothorax and desaturation to 84%. Patient had a large pneumothorax which developed tension pneumothorax. Procedure was performed at bedside under clean technique emergently. Prior to procedure, chest x-ray films were reviewed by myself and demonstrated large right pneumothorax. A time-out was completed verifying correct patient, procedure, site, positioning, and implant(s) or special equipment if applicable at 10:30 AM. Chest wall was evaluated for location for optimal chest tube placement in the midclavicular second intercostal space by palpation. Location between the second and third ribs were marked on the skin using gentle pressure. The right chest wall was prepped with chlorhexidine and draped in the typical sterile fashion. 30mL of 1% Lidocaine without epinephrine was used to anesthetize the skin down to the dorsal surface of the third rib. Air return heralded entry into the pleural space. Lidocaine was injected into the pleural space for increased anesthetization. Introducer needle on syringe was inserted in perpendicular fashion taking care to ride just above the dorsal surface of the third rib. Entry into the pleural space was heralded by bubbles into the syringe while under gentle aspiration. Guide wire was advanced into the pleural space without resistance and the introducer needle was subsequently removed. Scalpel was used to make small incision of the superficial tissue, parallel to the direction of the rib anatomy. A #8 dilator followed by a #12 dilator was advanced uneventfully over the guide wire into the pleural space. A #14 Nepalese skater pigtail catheter was inserted into the pleural space without complication. Inner introducer and guide wire were removed and release of air was audible. Luer-Dennys was covered and immediately connected to pre-prepared DION pleur-evac system. Pigtail was secured using a skater fix and sterile dressing was applied. Chest tube was placed to -20cm H2O suction. Patient tolerated procedure well with no acute pain or decompensation. Immediately after placement of the pigtail catheter, patient's saturations rika from 84% to 96%. Patient was noted to have a grade 4 airleak immediately after placement of the pigtail catheter. Within 15 minutes airleak was down to a grade 1 and saturations improved to 96% on 2 L of supplemental oxygen. Patient has no known congestive heart failure or COPD so patient was placed on Oxymask at 6 L for hyperoxygenation to promote healing of the pleural defect. Blood Loss: Minimal Complications: None Post procedure Chest X-ray was ordered and reviewed by myself which demonstrated adequate placement of the skater pigtail catheter with resolution of the pneumothorax on the right. Procedure and results were communicated with Dr. Camacho immediately after the procedure was completed. He reviewed the chest x-ray and will see the patient later today. Coding CPT Codes Pulmonary/Thoracic - Pulmonary and Thoracic: 24127 Tube thoracostomy ([id number]) [facility] [place]odes ([place]) Pulmonary/Thoracic Procedure 1: Pulmonary and Thoracic: 86028 Tube thoracostomy
--- NOTE | 2021-07-02 16:14 | Billing Data ---
Date of Service July 02, 2021 Coding Level of Care Code 93193 Subseq Hosp Care Lvl 2
--- NOTE | 2021-07-02 18:21 | Procedure Note ---
Procedure Note Date of Service July 02, 2021 Note Procedure: Closure of previous chest tube insertion site Date: 07/02/2021 Time: 18:00 Narrative: Patient had surgical chest tube inserted yesterday. Chest tube removed and there was a large pleural leak and a 7 cm incision where chest tube was placed in the right lateral chest wall.Previous dressing was taken down and the area was cleaned with sterile saline and dried with sterile gauze. 8mls of 1% lidocaine was then used to anesthesiasize the borders of the incision. #2 braided silk was then used to place 3 interrupted sutures to close the area. Hemostasis was obtained and a vaseline dressing was placed over the pleural insertion site and the covered with sterile gauze. A dressing was applied using paper tape. The chest tube was then secured using a tape tent made of 4 inch silk tape. The patient tolerated the closure well and there were no complications. Nursing was asked to monitor the dressing and re-enforce as needed Coding
[2021-07-02] MEDS: ACETAMINOPHEN 500 MG TAB PO SCH (18:49)
--- NOTE | 2021-07-02 21:37 | Electrocardiogram Report ---
Test Reason : Blood Pressure : / mmHG Vent. Rate : 092 BPM Atrial Rate : 092 BPM P-R Int : 146 ms QRS Dur : 096 ms QT Int : 360 ms P-R-T Axes : 078 079 080 degrees QTc Int : 445 ms Poor data quality, interpretation may be adversely affected Normal sinus rhythm Low voltage QRS Borderline ECG When compared with ECG of 17-DEC-2006 11:45, No significant change was found Confirmed by Hans Cole ([id number]) on 07/02/2021 9:37:16 PM Referred By: REFERRED SELF Confirmed By:Hans Cole
--- NOTE | 2021-07-03 02:20 | Billing Data ---
Date of Service July 03, 2021 Coding Level of Care Code 10397 Initial Inpt Care Lvl 2
[2021-07-03] MEDS: ACETAMINOPHEN 500 MG TAB PO SCH ×3 (05:41→22:02)
[2021-07-03 06:38] LABS: Basophils # (auto) 0.02 K/uL (0-0.2); Basophils % (auto) 0.2 %; Eosinophils # (auto) 0.13 K/uL (0-0.5); Eosinophils % (auto) 1.1 %; Hematocrit (blood only) 42.2 % (42-52); Hemoglobin 13.7 g/dL (14.0-18.0); Immature Granulocytes # (auto) 0.03 K/uL (0.00-0.02); Immature Granulocytes % (auto) 0.2 %; Lymphocytes # (auto) 1.39 K/uL (1.2-3.4); Lymphocytes % (auto) 11.3 %; Mean Corpuscular Hemoglobin 29.4 pg (25-34); Mean Corpuscular Hgb Conc 32.5 g/dL (32-36); Mean Corpuscular Volume 90.6 fL (80-100); Mean Platelet Volume 11.2 fL (7.4-10.4); Monocytes # (auto) 1.42 K/uL (0.11-0.59); Monocytes % (auto) 11.5 %; Neutrophils # (auto) 9.31 K/uL (1.4-6.5); Neutrophils % (auto) 75.7 %; Platelet Count 190 K/uL (130-400); RDW Standard Deviation 46.2 fL (36.4-46.3); Red Blood Count 4.66 M/uL (4.7-6.1)
[2021-07-03 07:00] LABS: BUN Creatinine Ratio 22.6 (10-20); Calcium 8.4 mg/dl (8.5-10.1); Creatinine Clr Calc Pharmacy 208.2 ml/min; Est GFR (African American) 127.8 ml/min; Est GFR (Non-African American) 110.3 ml/min; Potassium 3.7 mmol/L (3.5-5.1)
--- NOTE | 2021-07-03 08:27 | Pulmonology Progress Note ---
Date of Service July 03, 2021 Assessment & Plan (1) Pneumothorax: Pneumothorax type: spontaneous, primary Qualified Code(s): J93.11 - Primary spontaneous pneumothorax (2) Morbid obesity with BMI of 45.0-49.9, adult: (3) History of tobacco abuse: Plan: Attending: Dr. 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 Remote history of tobacco abuse. Quit smoking in 1997. No other use of nicotine products, vaping, illicit drugs. Patient does admit to periodically smoking marijuana. No recent trauma, surgery, hospitalizations, illness to explain pneumothorax. Surgical chest tube removed yesterday due to migration of tube and persistent pneumothorax. Right apical 14 Scottish pigtail catheter placed 07/02/2021. Chest x-ray reviewed this morning shows reexpansion of the lung. Patient continues with a grade 1 airleak to suction. Recommendations: 1. Spontaneous pneumothorax: * No trauma, surgery, other etiology consistent with occurrence of pneumothorax * Surgical chest tube removed yesterday. Right apical 14 Scottish pigtail catheter placed successfully yesterday * Chest x-ray reviewed and patient has expansion of right lung but has a persistent grade 1 airleak * We will send the patient for a CT chest without contrast. Patient can go off suction but should be placed back on suction on return to room until CT can be reviewed * Oxygenating well. Continue with supplemental oxygen as required to maintain SaO2 greater than 90% 2. Morbid obesity: * Briefly discussed. Will focus on weight loss strategy with primary team 3. Tobacco abuse: * Heavy smoker until 1997. He quit at that time. Occasional marijuana use at this time. * Counseled patient on complete abstention of any inhaled products including tobacco, marijuana, chemicals, vaping. Thank you for including us in the care of this patient. Continue with chest tube at this time. If patient has persistent air leak may need to be transferred to tertiary care facility for consideration of VATS. Admission and Anticipated Discharge Date Admission Date: July 01, 2021 Supervising Physician Co-Signing Physician Notes Agree with note. Continue pigtail to suction. CT chest reviewed. No obvious emphysema or blebs seen. Incidental scapular fx seen. Patient denies trauma. Sutures placed on right chest wound. Will need removed in 7 days. Subjective Attending: Dr. Camacho Patient seen and examined in room 201. Chest x-ray reviewed and patient's lung has reexpanded on the right side. Chest tube is in good position in the right apex. It appears to terminate in the pleural space. Patient is oxygenating well. He does continue to have a persistent grade 1 airleak. He denies any significant chest pain. No shortness of breath. No respiratory distress. He denies fever, chills, sweats, rigors. No other acute complaints at this time. Review of Systems Review of Systems: All systems reviewed & are unremarkable except as noted in Subjective Physical Exam Physical Exam: GENERAL : No acute distress. Patient is somewhat worried about lung not healing and requiring surgery. Verbalizes appropriately. EYES: No icterus, gaze conjugate NOSE: No evidence of epistaxis. Nasal cannula in place and secure MOUTH: No lesions or candidiasis NECK: Supple LUNGS: CTA B/L, no wheezes, rales or rhonchi. Good breath sounds in all lung [place]. No induced cough with deep inspiration HEART: Regular, rate controlled ABDOMEN: Soft, NT, ND, BS Present EXTREMITIES: Trace LE edema which the patient states is usual for him, pedal pulses intact and equal NEURO: A&OX3 Results & Data Results & Data ([facility]) Vital Signs (Past 12 Hours) Vital Signs Temp Pulse Pulse Resp BP BP Pulse Ox 07/03/21 07:49 36.5 C 70 19 142/97 H 95 07/03/21 03:34 36.7 C 70 22 148/80 H 97 07/02/21 22:58 73 07/02/21 22:37 36.6 C 73 20 147/77 H 100 Diagnostic Findings Chest X-Ray 07/02/21 09:00 SINGLE VIEW CHEST CLINICAL HISTORY: Pneumothorax and chest tube. FINDINGS: An AP, portable, semierect chest radiograph is compared to study dated 07/01/2021. The examination is degraded by portable technique and apical lordotic positioning. The cardiomediastinal silhouette is unremarkable. A right-sided chest tube has been pulled back. This appears to be located in the chest wall. There is a large right pneumothorax with significant atelectasis of the right lung. There is no left-sided pneumothorax. The trachea is midline. The left lung appears clear noting basilar atelectasis. The bony thorax is grossly intact. There is increasing subcutaneous emphysema within the right chest wall. IMPRESSION: 1. A right-sided chest tube has been pulled back and is likely located within the chest wall. 2. Moderate to large right pneumothorax with partial collapse of the right lung. 3. The trachea is midline. ACT 112: Negative or not required by law. Electronically signed by: Nilay Callahan M.D. 07/02/2021 10:03 AM Chest X-Ray 07/02/21 10:53 SINGLE VIEW CHEST CLINICAL HISTORY: Chest tube placement. FINDINGS: An AP, portable, upright chest radiograph is compared to study performed earlier the same day 07/02/2021. The examination is degraded by portable technique and apical lordotic positioning. The cardiomediastinal silhouette is unremarkable. A right-sided chest tube has been replaced. No residual right pneumothorax is identified. Atelectasis is noted at the right lung base. Question trace right pleural effusion. The left lung appears clear. No pneumothorax is seen. The bony thorax is grossly intact. Subcutaneous emphysema is noted along the right chest wall. IMPRESSION: 1. A right-sided chest tube has been replaced. The right lung has reexpanded, with no residual pneumothorax identified. 2. There is atelectasis at the right lung base. Suspect trace right pleural effusion. ACT 112: Negative or not required by law. Electronically signed by: Nilay Callahan M.D. 07/02/2021 11:32 AM PG Care Time/CCT Total # of Minutes Spent Total Time Spent with Patient: Total time spent is greater than 50% in coordination of care (as documented) at patient's floor/unit and/or counseling patient: 30 minutes Coding Level of Care Code 59020 Subseq Hosp Care Lvl 2 Diagnoses Pneumothorax J93.11 Pneumothorax type: spontaneous, primary Morbid obesity with BMI of 45.0-49.9, adult E66.01; Z68.42 History of tobacco abuse Z87.891 Time Spent (min) 30
--- NOTE | 2021-07-03 09:33 | XRay Report ---
XR chest 1V portable CLINICAL HISTORY: Right PNX TECHNIQUE: Single frontal radiograph of the chest was obtained. Comparison: Comparison is made to chest one view 07/02/2021 FINDINGS: A right chest tube is seen. There is subcutaneous emphysema. The cardiomediastinal silhouette is stab le. Lungs are underinflated. There is mild pulmonary edema. Atelectasis is seen in the right lung bas e. No pneumothorax is seen. IMPRESSION: Right chest tube is in place. No evidence of pneumothorax. ACT 112: Negative or not required by law. Electronically signed by: Romel Couch M.D. 07/03/2021 9:32 AM
--- NOTE | 2021-07-03 09:37 | CT Scan Report ---
CT chest diagnostic wo con CT DOSE: 1106.98 mGy.cm CLINICAL HISTORY: 66 years-old Male with Persistent air leak right PNX. Acute shortness of breath wi th right-sided pneumothorax TECHNIQUE: Multiaxial CT images of the chest were performed without contrast. A dose lowering techni que was utilized adhering to the principles of ALARA. COMPARISON: Chest radiograph of same day FINDINGS: Multinodular thyroid includes a 1.3 cm right-sided thyroid nodule. There are a few mildly enlarged th e spinal and hilar lymph nodes including a 1.3 cm right hilar lymph node and 1.0 cm subcarinal lymph node. These are favored to be reactive. The heart is normal in size. Extensive coronary artery calcif ications. Atherosclerosis of the thoracic aorta without aneurysm. Moderate subcutaneous and deep tissue emphysema of the right lateral chest wall extends into the righ t supraclavicular tissues and right lower flank. A right-sided chest tube distal tip projects adjacen t to the anterior right upper lobe. Small to moderate right-sided pneumothorax with pleural separatio n measuring up to 2.5 cm anteriorly. The pneumothorax is largest at the level of the right lung base. There is atelectasis with partial collapse of the right lower lobe. Atelectasis is also noted within the right middle lobe. Mild left lung base linear consolidation is suggestive of atelectasis. The ce ntral airways appear patent. Small right pleural effusion. 3.1 cm hypodense right adrenal gland lesion is suggestive of an adenoma. Intramuscular hemorrhage wit hin the right subscapularis distribution. There is an acute and comminuted fractures involving the mi d to inferior aspects of the right scapular body. Several of the small fracture fragments are displac ed several millimeters. No acute displaced rib fracture. Multilevel bridging spondylosis throughout t he thoracic spine. No acute vertebral body fracture. IMPRESSION: 1. Right-sided hydropneumothorax with the pneumothorax component largest at the level of the right joana ng base. Satisfactory positioning of the right-sided chest tube. There is a moderate amount of subcut aneous and deep tissue emphysema of the right chest wall and flank. 2. Atelectasis with partial collapse of the right lower lobe. 3. Acute and comminuted right scapular fracture. 4. Extensive coronary artery calcifications. ACT 112: Negative or not required by law. Electronically signed by: Kei Preston M.D. 07/03/2021 9:35 AM
[2021-07-03] MEDS: SODIUM CHLORIDE 0.9% 1000ML 1,000 ML IV SCH (12:08)
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
--- NOTE | 2021-07-03 16:36 | Billing Data ---
Date of Service July 03, 2021 Coding Level of Care Code 29750 Subseq Hosp Care Lvl 2
[2021-07-04] MEDS: SODIUM CHLORIDE 0.9% 1000ML 1,000 ML IV SCH ×2 (00:44→13:42)
[2021-07-04] MEDS: ACETAMINOPHEN 500 MG TAB PO SCH ×3 (05:04→21:19)
[2021-07-04 06:51] LABS: Basophils # (auto) 0.02 K/uL (0-0.2); Basophils % (auto) 0.2 %; Eosinophils % (auto) 2.1 %; Hematocrit (blood only) 40.2 % (42-52); Hemoglobin 13.4 g/dL (14.0-18.0); Immature Granulocytes # (auto) 0.03 K/uL (0.00-0.02); Immature Granulocytes % (auto) 0.3 %; Lymphocytes # (auto) 1.86 K/uL (1.2-3.4); Lymphocytes % (auto) 19.4 %; Mean Corpuscular Hemoglobin 29.9 pg (25-34); Mean Corpuscular Hgb Conc 33.3 g/dL (32-36); Mean Corpuscular Volume 89.7 fL (80-100); Mean Platelet Volume 11.3 fL (7.4-10.4); Monocytes # (auto) 1.25 K/uL (0.11-0.59); Neutrophils # (auto) 6.25 K/uL (1.4-6.5); Platelet Count 199 K/uL (130-400); RDW Coefficient of Variation 13.9 % (11.5-14.5); RDW Standard Deviation 45.7 fL (36.4-46.3); Red Blood Count 4.48 M/uL (4.7-6.1); White Blood Count 9.61 K/uL (4.8-10.8)
[2021-07-04 07:28] LABS: BUN Creatinine Ratio 22.9 (10-20); Calcium 8.3 mg/dl (8.5-10.1); Creatinine Clr Calc Pharmacy 232.2 ml/min; Est GFR (African American) 133.1 ml/min; Est GFR (Non-African American) 114.8 ml/min; Potassium 3.5 mmol/L (3.5-5.1)
--- NOTE | 2021-07-04 08:32 | Pulmonology Progress Note ---
Date of Service July 04, 2021 Assessment & Plan (1) Pneumothorax: Pneumothorax type: spontaneous, primary Qualified Code(s): J93.11 - Primary spontaneous pneumothorax (2) Morbid obesity with BMI of 45.0-49.9, adult: (3) History of tobacco abuse: Plan: Attending: Dr. 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 Remote history of tobacco abuse. Quit smoking in 1997. No other use of nicotine products, vaping, illicit drugs. No recent trauma, surgery, hospitalizations, illness to explain pneumothorax. Recommendations: 1. Spontaneous pneumothorax: * No trauma, surgery, illness recently * No tobacco use since 1997 * Patient does admit to some periodic marijuana use. Last use was 2 days ago * CT chest from 07/03 reviewed. No significant emphysema or blebs seen. Subq air seen. Incidental scapular fx. No clear trauma. * CXR from this AM with no significant ptx. * Pigtail placed to waterseal. Will repeat cxr at 11am to ensure imaging is stable. Informed patient to call RN if symptoms of ptx begin to place patient back on suction. 2. Morbid obesity: * Briefly discussed. Will focus on weight loss strategy with primary team 3. Tobacco abuse: * Heavy smoker until 1997. He quit at that time. Occasional marijuana use at this time. * Counseled patient on complete abstention of any inhaled products including tobacco, marijuana, chemicals, vaping. Admission and Anticipated Discharge Date Admission Date: July 01, 2021 Subjective Patient denies sob. No chest pain, fevers or chills. Currently pigtail to suction. Review of Systems Review of Systems: All systems reviewed & are unremarkable except as noted in HPI & below Physical Exam Physical Exam: GENERAL : No acute distress. Patient is somewhat worried about lung not healing and requiring surgery. Verbalizes appropriately. EYES: No icterus, gaze conjugate NOSE: No evidence of epistaxis. Nasal cannula in place and secure MOUTH: No lesions or candidiasis NECK: Supple LUNGS: CTA B/L, no wheezes, rales or rhonchi. Good breath sounds in all lung [place]. No induced cough with deep inspiration HEART: Regular, rate controlled ABDOMEN: Soft, NT, ND, BS Present EXTREMITIES: Trace LE edema which the patient states is usual for him, pedal pulses intact and equal NEURO: A&OX3 Results & Data Results & Data ([facility]) Vital Signs (Past 12 Hours) Vital Signs Temp Pulse Pulse Resp BP BP Pulse Ox 07/04/21 07:39 36.5 C 68 21 154/97 H 97 07/04/21 07:32 62 07/04/21 05:06 74 20 124/98 98 07/04/21 03:23 36.8 C 67 19 171/97 H 96 07/03/21 23:53 82 07/03/21 23:26 36.8 C 77 18 140/79 97 PG Care Time/CCT Total # of Minutes Spent Total Time Spent with Patient: Total time spent is greater than 50% in coordination of care (as documented) at patient's floor/unit and/or counseling patient: Coding Level of Care Code 95056 Subseq Hosp Care Lvl 3 Diagnoses Pneumothorax J93.11 Pneumothorax type: spontaneous, primary Morbid obesity with BMI of 45.0-49.9, adult E66.01; Z68.42 History of tobacco abuse Z87.891
--- NOTE | 2021-07-04 09:00 | XRay Report ---
XR chest 1V portable CLINICAL HISTORY: Right PNX TECHNIQUE: Single frontal radiograph of the chest was obtained. Comparison: Comparison is made to chest one view 07/03/2021 FINDINGS: A right chest tube is again noted. Cardiomegaly is noted. Prominence and cephalization of the vascula ture is seen. No evidence of pleural effusion or pneumothorax. Right subcutaneous emphysema is seen. IMPRESSION: 1. Right chest tube in place without evidence of pneumothorax. 2. Mild pulmonary edema with cardiomegaly. ACT 112: Negative or not required by law. Electronically signed by: Romel Couch M.D. 07/04/2021 8:58 AM
--- NOTE | 2021-07-04 11:59 | XRay Report ---
XR chest 1V portable HISTORY: 66 years-old Male chest tube on waterseal right-sided chest tube COMPARISON: Chest radiograph of same day at 6:38 AM, chest CT 07/03/2021 TECHNIQUE: Portable AP view of the chest FINDINGS: Cardiac silhouette is enlarged. Pulmonary vascular congestion without overt pulmonary edema. A right- sided chest tube is in unchanged positioning. Unchanged small right-sided pneumothorax with pleural s eparation measuring up to 4 mm at the lateral right lung apex.. Persistent subcutaneous emphysema of the right lateral chest wall. Persistent right greater left bibasilar densities. Degenerative changes of the shoulders and spine. IMPRESSION: Unchanged positioning of the right-sided chest tube with small persistent right pneumotho rax. ACT 112: Negative or not required by law. The above report was generated using voice recognition software. It may contain grammatical, syntax o r spelling errors. Electronically signed by: Kei Preston M.D. 07/04/2021 11:56 AM
--- NOTE | 2021-07-04 14:55 | XRay Report ---
XR chest 1V portable CLINICAL HISTORY: Right pneumothorax COMPARISON STUDY: Chest CT July 03, 2021. Chest radiograph July 04, 2021 at 10:43 AM. FINDINGS: Right pleural catheter remains in place. The right pneumothorax has significantly increased in size and is now large. Superior pleural separation measures 6.6 cm. There may be mild leftward me diastinal shift. Subcutaneous gas within the right chest wall is noted. There is no left pneumothorax . IMPRESSION: Large right pneumothorax, significantly increased in size. Possible mild leftward mediast inal shift. This finding will be called/faxed to the ordering provider at time of dictation. ACT 112: Negative or not required by law. Electronically signed by: Paulo Maxwell M.D. 07/04/2021 2:53 PM
[2021-07-04] MEDS: MoRPHine SULFATE 2 MG/ML CARP IV PRN (15:04)
--- NOTE | 2021-07-04 15:10 | Hospitalist Progress Note ---
Date of Service July 04, 2021 Assessment & Plan (1) Pneumothorax: Plan: Tony Munguia is a 66-year-old male with PMH of tobacco use for many years (stopped in 1997) who presented today for chest pain since earlier today. Pneumothorax Pigtail catheter was clamped and when this occurred repeat chest x-ray showed a reestablishment of pneumothorax. -At this time patient does require transfer to a tertiary facility for further treatment that cannot be provided at this facility. As needed pain management with Tylenol and IV morphine Patient likely has some underlying lung pathology with long history of tobacco use, could consider PFTs in the future -Per pulmonology there does seem to be continued lung leakage -Pt has been accepted at [facility] by Dr. Maxwell Right communicated scapular fracture -CT of the thorax had found a right communicable scapular fracture -Place patient in sling and will continue to do so until any he may have pain improves, will need to stay in sling for 2 weeks DVT prophylaxis: SCDs, hold chemoprophylaxis Dispo: Telemetry Diet: Heart healthy, NSS @ 80cc/h CODE STATUS: Full Admission and Anticipated Discharge Date Admission Date: July 01, 2021 Supervising Physician Co-Signing Physician Notes I personally examined the patient and verified all tillman points of history and exam, discussed case, and agree with decision making with Dr Eng needs to be transferred. doesn't like the idea but seems accepting. breathing stable vitals noted nad heent nc at mmm breathing unlabored lungs overall clear. no accessory muscles spontaneous pneumothorax - doing better now. continue chest tube, oxygen support as needed. for transfer for presumed VATS scapular fracture - ?etiology. no pain. sling. outpt [facility] w/u otherwise as above Subjective Patient seen at bedside this morning. Patient is frustrated this morning as he feels a scapular fracture may be due to having his chest tube placed by the ED physician. He is very adamant that he was able to rake leaves and get into the ambulance by himself utilizing both of his arms and did not experience any pain at either of these points. States that he did not have any shoulder or back pain until he came to the hospital. Otherwise patient is off of oxygen and saturating well on room air and suction was transition to waterseal. A repeat echo chest x-ray and shown expansion of the collapsed lung. However, when the pigtail catheter was clamped and a chest x-ray was rechecked later in the day, it was found that the pneumothorax had been reestablished indicating that the bleb that may have been the cause has not resealed. Review of Systems Review of Systems: All systems reviewed & are unremarkable except as noted in HPI & below Results & Data Results & Data ([facility]) Vital Signs (Past 12 Hours) Vital Signs Temp Pulse Pulse Resp BP BP Pulse Ox 07/04/21 14:45 79 07/04/21 12:36 36.8 C 70 16 169/99 H 96 07/04/21 07:39 36.5 C 68 21 154/97 H 97 07/04/21 07:32 62 07/04/21 05:06 74 20 124/98 98 07/04/21 03:23 36.8 C 67 19 171/97 H 96 (1) Pneumothorax Pneumothorax type: spontaneous, primary Qualified Code(s): J93.11 - Primary spontaneous pneumothorax
--- NOTE | 2021-07-04 18:18 | Discharge Summary ---
Date of Service July 04, 2021 Admission HPI Per Admitting Provider Tony Munguia is a 66-year-old male with PMH of tobacco use for many years (stopped in 1997) who presented today for chest pain since earlier today. He initially felt the pain when he was raking leaves in his yard around noon and noticed shortness of breath. At this point, he stopped raking, went inside his home, and symptoms improved. Later on in the afternoon he reattempted to rake outside and shortness of breath recurred. At this point he developed chest pain that radiated towards his right arm. Pain level was about 6 out of 10, described as pressure. EMS was called and arrived to find patient with ongoing symptoms. He was given a dose of nitroglycerin on route to the emergency department, with some improvement in pain levels. Upon arrival to ED, patient was found to be hypoxic and had chest x-ray performed, which showed a large right pneumothorax, possibly representing a tension pneumothorax. At this point, ED provider proceeded with chest tube placement, which proved to be difficult due to patient habitus. On the third attempt, chest tube was successfully placed follow-up x-ray showed lung reexpansion. At the time of my evaluation, patient was laying in bed and was reasonably comfortable.Still had very mild dyspnea sensation, but was saturating well on nasal cannula 2 L. Pain was controlled at that time. Denying f/c, n/v, CP, abd pain, weakness, numbness, HOLLAND, dizziness. Principal Diagnosis Primary spontaneous pneumothorax Discharge Exam Constitutional WD/WN, vitals as above Eyes PERRL, conjunctivae normal, anicteric sclerae Neck trachea midline, no thyromegaly Respiratory no respiratory distress Auscultation: + breath sounds absent Cardiovascular RRR, no murmur, no edema Gastrointestinal (Abdomen) normal bowel sounds, soft, nontender, no hepatosplenomegaly Musculoskeletal Head/Neck/Chest: normocephalic and head atraumatic Skin no rashes, warm and dry Neurologic moves all extremities Psychiatric A+Ox3, euthymic affect Discharge Data Allergies Allergy/AdvReac Type Severity Reaction Status Date / Time No Known Allergies Allergy Unknown Verified 07/01/21 22:26 Consultations 07/01/21 21:52 ED Decision to Admit Stat 07/02/21 00:07 Consult Pulmonology Routine Ordered Studies 07/03/21 08:17 CT chest diagnostic wo con Urgent Hospital Course (1) Pneumothorax: Tony Munguia is a 66-year-old male with PMH of tobacco use for many years (stopped in 1997) who presented today for chest pain since earlier today. Pneumothorax Pigtail catheter was clamped and when this occurred repeat chest x-ray showed a reestablishment of pneumothorax. -At this time patient does require transfer to a tertiary facility for further treatment that cannot be provided at this facility. As needed pain management with Tylenol and IV morphine Patient likely has some underlying lung pathology with long history of tobacco use, could consider PFTs in the future -Per pulmonology there does seem to be continued lung leakage -Pt has been accepted at [facility] by Dr. Alissa Asif communicated scapular fracture -CT of the thorax had found a right communicable scapular fracture -Place patient in sling and will continue to do so until any he may have pain improves, will need to stay in sling for 2 weeks DVT prophylaxis: SCDs, hold chemoprophylaxis Dispo: Transfer to tertiary care facility Diet: Heart healthy, NSS @ 80cc/h CODE STATUS: Full Total Time Total Time Spent Total Time Spent (In Minutes): 30 Discharge Plan Discharge Items Patient Disposition: Transfer Acute Care Hospital Reason For Visit: PNEUMOTHORAX Discharge Diagnosis: Primary spontaneous pneumothorax Activity: Per Instructions section Follow-up/Referrals: PCP,WILIAN [Primary Care Provider] - Diet: Regular Addtl Attending Provider Instructions: Tony Munguia is a 66-year-old male with PMH of tobacco use for many years (stopped in 1997) who presented today for chest pain since earlier today. Pneumothorax Pigtail catheter was clamped and when this occurred repeat chest x-ray showed a reestablishment of pneumothorax. -At this time patient does require transfer to a tertiary facility for further treatment that cannot be provided at this facility. As needed pain management with Tylenol and IV morphine Patient likely has some underlying lung pathology with long history of tobacco use, could consider PFTs in the future -Per pulmonology there does seem to be continued lung leakage -Pt has been accepted at [facility] by Dr. Alissa Asif communicated scapular fracture -CT of the thorax had found a right communicable scapular fracture -Place patient in sling and will continue to do so until any he may have pain improves, will need to stay in sling for 2 weeks DVT prophylaxis: SCDs, hold chemoprophylaxis Dispo: Transfer to tertiary care facility Diet: Heart healthy, NSS @ 80cc/h CODE STATUS: Full Pending Studies at Discharge: No Stand-Alone Forms: [employer], Smoking Cessation Skilled Items Patient informed of condition?: Yes DNR: No Discharge Level of Care: Other Communicable Disease: No Discharge Prognosis: Stable Lines: Peripheral IV Urinary Catheter: No Medications and DC Order Prescriptions: Continued acetaminophen [Tylenol Extra Strength] 500 mg Tablet 1,000 mg PO BID PRN (Reason: Pain) RF: 0 Admission Data Admit Date/Time: 07/01/21 22:54 Attending Provider: Bola Butler Admit Provider: Mahendra Oneill Primary Care Provider: PCP,NO Other Providers: Bob Richard ; Klever Camacho
[2021-07-05] MEDS: SODIUM CHLORIDE 0.9% 1000ML 1,000 ML IV SCH ×2 (04:03→16:00)
[2021-07-05] MEDS: ACETAMINOPHEN 500 MG TAB PO SCH ×3 (05:47→21:01)
[2021-07-05 06:20] LABS: Basophils # (auto) 0.03 K/uL (0-0.2); Basophils % (auto) 0.3 %; Eosinophils # (auto) 0.17 K/uL (0-0.5); Eosinophils % (auto) 1.9 %; Hematocrit (blood only) 39.9 % (42-52); Hemoglobin 13.4 g/dL (14.0-18.0); Immature Granulocytes # (auto) 0.03 K/uL (0.00-0.02); Immature Granulocytes % (auto) 0.3 %; Lymphocytes # (auto) 1.37 K/uL (1.2-3.4); Lymphocytes % (auto) 15.1 %; Mean Corpuscular Hemoglobin 29.7 pg (25-34); Mean Corpuscular Hgb Conc 33.6 g/dL (32-36); Mean Corpuscular Volume 88.5 fL (80-100); Mean Platelet Volume 10.8 fL (7.4-10.4); Monocytes % (auto) 9.9 %; Neutrophils # (auto) 6.55 K/uL (1.4-6.5); Neutrophils % (auto) 72.5 %; Platelet Count 214 K/uL (130-400); RDW Coefficient of Variation 13.6 % (11.5-14.5); RDW Standard Deviation 44.2 fL (36.4-46.3); Red Blood Count 4.51 M/uL (4.7-6.1); White Blood Count 9.05 K/uL (4.8-10.8)
[2021-07-05 06:49] LABS: BUN Creatinine Ratio 23.5 (10-20); Calcium 8.3 mg/dl (8.5-10.1); Creatinine Clr Calc Pharmacy 216.5 ml/min; Est GFR (African American) 129.8 ml/min; Potassium 3.1 mmol/L (3.5-5.1)
--- NOTE | 2021-07-05 07:44 | XRay Report ---
XR chest 1V portable CLINICAL HISTORY: Ptx follow up COMPARISON STUDY: Chest radiograph July 04, 2021 at 1:53 PM. FINDINGS: Right pleural catheter has been repositioned. Tip is within the right upper hemithorax. Rig ht pneumothorax is markedly decreased in size. Trace residual right pneumothorax. Subcutaneous gas wi thin the right chest wall has increased. Cardiomegaly is noted. There are bibasilar opacities. IMPRESSION: Interval repositioning of right pleural catheter with marked decrease in size of the rig ht pneumothorax. Catheter just within the thoracic cavity. Trace residual pneumothorax. Increase in s ubcutaneous gas within the right chest and neck. ACT 112: Negative or not required by law. Electronically signed by: Paulo Maxwell M.D. 07/05/2021 7:43 AM
--- NOTE | 2021-07-05 08:26 | Billing Data ---
Date of Service July 04, 2021 Coding Level of Care Code 43792 Subseq Hosp Care Lvl 3
--- NOTE | 2021-07-05 10:57 | Pulmonology Progress Note ---
Date of Service July 05, 2021 Assessment & Plan (1) Pneumothorax: Pneumothorax type: spontaneous, primary Qualified Code(s): J93.11 - Primary spontaneous pneumothorax (2) History of tobacco abuse: (3) Persistent air leak: (4) Subcutaneous emphysema: Plan: Attending: Dr. Camacho Impression: This is a 66-year-old male with spontaneous pneumothorax which developed while he was raking leaves yesterday. Remote history of tobacco abuse. Quit smoking in 1997. No other use of nicotine products, vaping, illicit drugs. No recent trauma, surgery, hospitalizations, illness to explain pneumothorax. Recommendations: 1. Spontaneous pneumothorax: * No trauma, surgery, illness recently * No tobacco use since 1997 * Patient does admit to some periodic marijuana use. Last use was 2 days ago * CT chest from 07/03 reviewed. No significant emphysema or blebs seen. Subq air seen. Incidental scapular fx. No clear trauma. * Unfortunately, he has a persistent grade one air leak. Will likely need more advanced intervention such as VATS or bronchial valve. CXR from today reviewed. Trace residual ptx seen. * Subq air also present from prior chest tube insertion in ER. This will resolve with time. Continue to monitor clinically. The incision has been sutured. Will need sutures removed in 5 days. 2. Tobacco abuse: * Heavy smoker until 1997. He quit at that time. Occasional marijuana use at this time. * Counseled patient on complete abstention of any inhaled products including tobacco, marijuana, chemicals, vaping. D/W nursing. Can d/c IVF as he is tolerating PO well. Admission and Anticipated Discharge Date Admission Date: July 01, 2021 Subjective Patient without acute events overnight. Anxious to go home. Some soreness around initial chest tube insertion site. No fevers or chills. On RA. Persistent grade one air leak from apical chest tube. Review of Systems Review of Systems: All systems reviewed & are unremarkable except as noted in HPI & below Physical Exam Physical Exam: GENERAL : No acute distress. Patient is somewhat worried about lung not healing and requiring surgery. Verbalizes appropriately. EYES: No icterus, gaze conjugate NOSE: No evidence of epistaxis. Nasal cannula in place and secure MOUTH: No lesions or candidiasis NECK: Supple LUNGS: CTA B/L, no wheezes, rales or rhonchi. Good breath sounds in all lung [place]. No induced cough with deep inspiration. Sutures intact around lateral incision. Crepitus felt over shoulder region HEART: Regular, rate controlled ABDOMEN: Soft, NT, ND, BS Present EXTREMITIES: Trace LE edema which the patient states is usual for him, pedal pulses intact and equal NEURO: A&OX3 Results & Data Results & Data ([facility]) Vital Signs (Past 12 Hours) Vital Signs Temp Pulse Pulse Resp BP BP Pulse Ox 07/05/21 10:42 36.6 C 79 17 146/95 H 95 07/05/21 07:58 36.6 C 76 22 177/85 H 95 07/05/21 04:35 36.5 C 77 18 181/98 H 95 07/05/21 00:45 90 07/04/21 23:38 36.3 C L 80 20 147/101 H 94 PG Care Time/CCT Total # of Minutes Spent Total Time Spent with Patient: Total time spent is greater than 50% in coordination of care (as documented) at patient's floor/unit and/or counseling patient: Coding Level of Care Code 46512 Subseq Hosp Care Lvl 2 Diagnoses Pneumothorax J93.11 Pneumothorax type: spontaneous, primary History of tobacco abuse Z87.891 Persistent air leak Subcutaneous emphysema T79.7XXA
--- NOTE | 2021-07-05 15:19 | Hospitalist Progress Note ---
Date of Service July 05, 2021 Assessment & Plan (1) Pneumothorax: Plan: Tony Munguia is a 66-year-old male with PMH of tobacco use for many years (stopped in 1997) who presented today for chest pain since earlier today. Pneumothorax Pigtail catheter was clamped and when this occurred repeat chest x-ray showed a reestablishment of pneumothorax. -At this time patient does require transfer to a tertiary facility for further treatment that cannot be provided at this facility. As needed pain management with Tylenol and IV morphine Patient likely has some underlying lung pathology with long history of tobacco use, could consider PFTs in the future -Per pulmonology there does seem to be continued lung leakage -Pt has been accepted at [facility] by Dr. Maxwell Right communicated scapular fracture -CT of the thorax had found a right communicable scapular fracture, unknown etiology -Place patient in sling and will need to stay in sling for 2 weeks -Osteoporotic work-up in outpatient setting. DVT prophylaxis: SCDs, hold chemoprophylaxis Dispo: Transfer to tertiary care facility Diet: Heart healthy, NSS @ 80cc/h CODE STATUS: Full Admission and Anticipated Discharge Date Admission Date: July 01, 2021 Supervising Physician Co-Signing Physician Notes I personally examined the patient and verified all tillman points of history and exam, discussed case, and agree with decision making with Dr Eng still waiting on bed. discussed anticipated course of care. no new issues otehrwise. answered questions to the best of my ability vitals noted nad heent nc at mmm breathing unlabored lungs overall clear. no accessory muscles spontaneous pneumothorax - doing better now. continue chest tube, oxygen support as needed (currently on room air). for transfer for presumed VATS scapular fracture - ?etiology. no pain. sling. outpt JouleX w/u (DEXA, D level) otherwise as above Subjective Patient seen at bedside this morning. No acute events overnight. Patient was not given a room at [facility] as of yet. Still planning on transfer to [facility] with the intent for further intervention for primary spontaneous pneumothorax. Patient very anxious and wishing to go home but understands that he needs to have his lung reinflated. No other concerns at this time. Review of Systems Review of Systems: All systems reviewed & are unremarkable except as noted in HPI & below Physical Exam Constitutional: WD/WN, vitals as above Eyes: PERRL, conjunctivae normal, anicteric sclerae Neck: trachea midline, no thyromegaly Respiratory: no respiratory distress Auscultation: + breath sounds absent Cardiovascular: RRR, no murmur, no edema Gastrointestinal (Abdomen): normal bowel sounds, soft, nontender, no hepatosplenomegaly Musculoskeletal: Head/Neck/Chest: normocephalic and head atraumatic Skin: no rashes, warm and dry Neurologic: moves all extremities Psychiatric: A+Ox3, euthymic affect Results & Data Results & Data ([facility]) Vital Signs (Past 12 Hours) Vital Signs Temp Pulse Resp BP BP Pulse Ox 07/05/21 10:42 36.6 C 79 17 146/95 H 95 07/05/21 07:58 36.6 C 76 22 177/85 H 95 07/05/21 04:35 36.5 C 77 18 181/98 H 95 (1) Pneumothorax Pneumothorax type: spontaneous, primary Qualified Code(s): J93.11 - Primary spontaneous pneumothorax
--- NOTE | 2021-07-05 16:11 | Billing Data ---
Date of Service July 05, 2021 Coding Level of Care Code 94711 Subseq Hosp Care Lvl 2
[2021-07-06] MEDS: ACETAMINOPHEN 500 MG TAB PO SCH ×2 (05:19→13:11)
--- NOTE | 2021-07-06 08:06 | XRay Report ---
SINGLE VIEW CHEST CLINICAL HISTORY: Chest tube and pneumothorax. FINDINGS: 2 AP, portable, upright chest radiographs are compared to study dictated 07/05/2021. The exa mination is degraded by portable technique and apical lordotic positioning. The cardiomediastinal julio houette is unremarkable. A right-sided chest tube is unchanged in position. Atelectasis is noted at t he right lung base. Airspace opacities and trace pleural fluid is again seen at the right lung base. The left lung appears clear. No definite residual pneumothorax is seen. The bony thorax is grossly in tact. Extensive subcutaneous emphysema is noted along the right chest wall and lower neck. IMPRESSION: 1. A right-sided chest tube is unchanged in position. No definite residual pneumothorax is identified . 2. There is atelectasis and pleural fluid at the right lung base. ACT 112: Negative or not required by law. Electronically signed by: Nilay Callahan M.D. 07/06/2021 8:03 AM
[2021-07-06] MEDS: MoRPHine SULFATE 2 MG/ML CARP IV PRN (13:51)
--- NOTE | 2021-07-06 14:36 | Billing Data ---
Date of Service July 06, 2021 Coding Level of Care Code D/C DAY MANAGEMENT <30 MINS
== END 2021-07-06 14:10 | disposition short-term general hospital (02) | DRG 200 ==
LOC: ED 19:18 → 2E 22:54 → SUATTDRO 22:54 → 2E 23:25